=== PATIENT | male | born 1970 | race American Indian/Alaskan Native ===

== ENCOUNTER 2017-01-20 12:34 | Emergency (ER) | payer SELFPAY ==
[2017-01-20 12:47] VITALS: BP 135/92
--- NOTE | 2017-01-20 13:27 | XRay Report ---
Right tibia right tibia fibula 2 views: History: Rule out glass in leg from injury. Findings: No radiopaque foreign body identified in the soft tissue of leg. No fracture, periosteal reaction or lytic lesion. Impression: Essentially negative right tibia-fibula.
== END 2017-01-20 15:00 | disposition left against medical advice (07) ==
LOC: ED 12:34
DX: S81.811A Laceration without foreign body, right lower leg, initial encounter (principal); W45.8XXA Other foreign body or object entering through skin, initial encounter; Y93.89 Activity, other specified; Y92.89 Other specified places as the place of occurrence of the external cause; Y99.8 Other external cause status; Z53.21 Procedure and treatment not carried out due to patient leaving prior to being seen by health care provider

== ENCOUNTER 2017-01-21 04:00 | Emergency (ER) | payer SELFPAY ==
[2017-01-21] MEDS ORDERED: NACL 0.9% 500 ML IR ONE (04:53)
[2017-01-21] MEDS ORDERED: BOOSTRIX IM ONE (05:03)
[2017-01-21] MEDS ORDERED: XYLOCAINE 1%/ EPI 1:100,000 INFILTRATI ONE (05:03)
[2017-01-21] MEDS ORDERED: NACL 0.9% IR ONE (05:04)
--- NOTE | 2017-01-21 05:10 | Emergency Department Report ---
- General Chief Complaint: Wound/Laceration Stated Complaint: RT LEG LAC Time Seen by Provider: 01/21/17 04:59 Source: patient Mode of arrival: Stretcher Limitations: No Limitations - History of Present Illness Initial Comments: Patient comes into the ER today with complaints of a right lower leg laceration. 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 Patient apparently came to the ER after the accident but ended up leaving prior to actual examination by provider. Patient is unsure of his last tetanus shot. Patient states that the wound continues to bleed. Patient denies any other areas of injury. - Related Data Previous Rx's Medication Instructions Recorded Last Taken Type Cephalexin [Keflex] 500 mg PO TID #30 capsule 01/21/17 Unknown Rx traMADol [Ultram 50 MG tab] 50 mg PO Q6HR PRN #20 tablet 01/21/17 Unknown Rx Allergies Allergy/AdvReac Type Severity Reaction Status Date / Time No Known Allergies Allergy Verified 04/21/13 09:21 ED Review of Systems ROS: Stated complaint: RT LEG LAC Other details as noted in HPI Constitutional: denies: chills, fever Eyes: denies: eye pain, eye discharge, vision change ENT: denies: ear pain, throat pain Respiratory: denies: cough, shortness of breath, wheezing Cardiovascular: denies: chest pain, palpitations Endocrine: no symptoms reported Gastrointestinal: denies: abdominal pain, nausea, diarrhea Genitourinary: denies: urgency, dysuria Musculoskeletal: denies: back pain, joint swelling, arthralgia Skin: denies: rash, lesions Neurological: denies: headache, weakness, paresthesias Psychiatric: denies: anxiety, depression Hematological/Lymphatic: denies: easy bleeding, easy bruising ED Past Medical Hx - Past Medical History Previous Medical History?: No Hx Hypertension: Yes - Surgical History Past Surgical History?: No - Social History Smoking Status: Current Every Day Smoker Substance Use Type: Marijuana - Medications Home Medications: Home Medications Medication Instructions Recorded Confirmed Last Taken Type Cephalexin [Keflex] 500 mg PO TID #30 capsule 01/21/17 Unknown Rx traMADol [Ultram 50 MG tab] 50 mg PO Q6HR PRN #20 tablet 01/21/17 Unknown Rx ED Physical Exam - General Limitations: No Limitations General appearance: alert, in no apparent distress - Head Head exam: Present: atraumatic, normocephalic - Eye Eye exam: Present: normal appearance - ENT ENT exam: Present: mucous membranes moist - Neck Neck exam: Present: normal inspection - Respiratory Respiratory exam: Present: normal lung sounds bilaterally. Absent: respiratory distress - Cardiovascular Cardiovascular Exam: Present: regular rate, normal rhythm. Absent: systolic murmur, diastolic murmur, rubs, gallop - GI/Abdominal GI/Abdominal exam: Present: soft, normal bowel sounds - Rectal Rectal exam: Present: deferred - Extremities Exam Extremities exam: Present: full ROM, tenderness (right anterior stewart), normal capillary refill, other (1.5 cm linear subcutaneous laceration noted to mid shaft of anterior right stewart. Small superficial pulsating vessel noted on initial examination. No foreign bodies visualized or identified.). Absent: pedal edema, joint swelling - Back Exam Back exam: Present: normal inspection - Neurological Exam Neurological exam: Present: alert, oriented X3, CN II-XII intact, reflexes normal. Absent: motor sensory deficit - Psychiatric Psychiatric exam: Present: normal affect, normal mood - Skin Skin exam: Present: warm, dry, intact, normal color. Absent: rash ED Course Vital Signs 01/21/17 04:59 Temperature 97.9 F Pulse Rate 65 Respiratory 18 Rate Blood Pressure 143/98 O2 Sat by Pulse 99 Oximetry - Laceration /Wound Repair Right Lower Anterior Leg Wound Location: lower extremity (right anterior mid lower leg) Wound Length (cm): 1 (actual length is 1.5 cm) Wound's Depth, Shape: linear (subcutaneous laceration with superficial pulsating vessel noted) Wound Explored: clean Irrigated w/ Saline (ccs): 60 Betadine Prep?: Yes Anesthesia: Lidocaine w/ Epi Volume Anesthetic (ccs): 5 Wound Repaired With: sutures Suture Size/Type: 3:0, proline Number of Sutures: 5 Layer Closure?: No Sterile Dressing Applied?: Yes Progress: Patient tolerated laceration repair without any complications or difficulty. Good wound margins achieved with suture closure. No active bleeding after procedure. ED Medical Decision Making - Radiology Data Radiology results: report reviewed interpreted by me: X-ray right tib-fib: No foreign body noted. No acute bone injury. - Medical Decision Making Patient is nontoxic and hemodynamically stable. The patient tolerated procedure very well without any complications. Patient was given a tetanus booster here in the ER. Previous visit x-ray results reviewed and discussed with patient room. Since wound has been open for over 12 hours, I will start patient on antibiotics accordingly and I have instructed patient on proper care and handling of his wound. Patient is to return to the ER in 10 days for suture removal. Patient is in agreement with treatment plan patient is stable for discharge. Critical care attestation.: If time is entered above; I have spent that time in minutes in the direct care of this critically ill patient, excluding procedure time. ED Disposition Clinical Impression: Laceration of right lower leg Disposition: DC-01 TO HOME OR SELFCARE Is pt being admited?: No Does the pt Need Aspirin: No Condition: Good Instructions: Suture Care (ED), Laceration (ED) Prescriptions: Cephalexin [Keflex] 500 mg PO TID #30 capsule traMADol [Ultram 50 MG tab] 50 mg PO Q6HR PRN #20 tablet PRN Reason: Pain Referrals: PRIMARY CARE,MD [Primary Care Provider] - 3-5 Days [facility], ER [Other] - 01/30/17 (For suture removal) Time of Disposition: 06:00
[2017-01-21 06:16] VITALS: BP 148/92
== END 2017-01-21 06:16 | disposition home or self-care (01) ==
LOC: ED 04:00
DX: S81.811A Laceration without foreign body, right lower leg, initial encounter (principal); F17.200 Nicotine dependence, unspecified, uncomplicated; I10 Essential (primary) hypertension; F12.10 Cannabis abuse, uncomplicated; W25.XXXA Contact with sharp glass, initial encounter; Y93.89 Activity, other specified; Y99.0 Civilian activity done for income or pay; Y92.89 Other specified places as the place of occurrence of the external cause
CPT/HCPCS: 90471; 90715

== ENCOUNTER 2017-08-20 22:55 | Emergency (ER) | payer SELFPAY ==
[2017-08-20 23:49] VITALS: BP 135/77
--- NOTE | 2017-08-21 00:28 | Cat Scan Report ---
FINAL REPORT EXAM: CT HEAD/BRAIN WO CON HISTORY: neuro deficits/intermittent unsteady gait COMPARISON: None available. TECHNIQUE: Axial images obtained skull base through vertex. FINDINGS: No acute intracranial hemorrhage, midline shift or pathologic extra axial fluid collection. Ventricles and cisterns are normal in size and configuration for the patient's age. Hernandez-white differentiation preserved. Calvarium grossly intact. Visualized ocular globes are grossly unremarkable. Mild mucosal thickening the visualized paranasal sinuses. Mastoid air cells are clear. IMPRESSION: No grossly acute intracranial abnormality.
[2017-08-21 00:33] LABS: Hematocrit 40.2 % (35.5-45.6); Hemoglobin 13.4 gm/dl (11.8-15.2); Mean Corpuscular HGB Conc 33 % (32-34); Mean Corpuscular Hemoglobin 31 pg (28-32); Mean Corpuscular Volume 94 fl (84-94); Platelet Count 298 K/mm3 (140-440); Red Blood Count 4.28 M/mm3 (3.65-5.03); Red Cell Distribution Width 13.6 % (13.2-15.2)
[2017-08-21 00:43] LABS: BUN/Creatinine Ratio 16; Blood Urea Nitrogen 14 mg/dL (9-20); Calcium 8.7 mg/dL (8.4-10.2); Hemolysis Index 4
[2017-08-21 00:48] LABS: INR 0.9 (0.87-1.13)
[2017-08-21 00:49] LABS: Partial Thromboplastin Time 37.1 Sec. (24.2-36.6)
[2017-08-21 02:50] LABS: Eosinophils % (Manual) 0 % (0.0-4.3); Total Cells Counted 100
[2017-08-21 02:51] LABS: Platelet Estimate Consistent w Auto
== END 2017-08-21 07:40 | disposition left against medical advice (07) ==
LOC: ED 22:55
DX: I10 Essential (primary) hypertension (principal); Z53.21 Procedure and treatment not carried out due to patient leaving prior to being seen by health care provider
CPT/HCPCS: 36415; 70450; 80048; 84484; 85007; 85025; 85610; 85670; 85730